=== PATIENT | female | born 1975 | race Caucasian/White ===

== ENCOUNTER → 2018-05-12 | Day surgery (SDC) | payer BC ==
[~2018-05-12] MED LIST: CYMBALTA20 MG PO; DIPHENHYDRAMINE25 M2 PO; FENTANYL CITRATE/PF 100MCG/2 ML INJ ONE; HALOPERIDOL1 MG PO; HUMIRA20 MG/0.4 SQ; HYDROXYZINE HCL25 MG PO; IMIPRAMINE HCL25 MG PO; LIALDA1.2 GM PO; MIDAZOLAM HCL 2 MG/2 ML VIAL ONE; NON-ASA ALLERG1 EACH PO; PANTOPRAZOLE SO40 MG PO; PREDNISONE20 MG PO; PROBIOTIC & AC1 EACH PO; PROPOFOL IV EMULSION 10 MG/ML 20 ML VIAL ONE; RANITIDINE HCL150 M1 PO; SINGULAIR10 MG PO; STELARA90 MG/1 ML SQ; SUCRALFATE1 GM PO; SULFASALAZINE500 MG PO; TOPIRAMATE100 MG PO; TRAZODONE HCL50 MG PO; UCERIS PO; VIBERZI PO; VITAMIN B-121000 MC2 SL; VITAMIN C500 M3 PO; VITAMIN D1000 UNI1 PO; WELLBUTRIN100 MG PO
--- OUTSIDE RECORDS SUMMARY | 2018-05-12 10:44 | XMS REPORT ---
Author Author [facility] Address Unknown Phone Unavailable Care Team Providers Care [employer] Name Role Phone Unavailable Unavailable Payers Payer Name Policy Type Policy Number Effective Date Expiration Date Problems This patient has no known problems. Allergies, Adverse Reactions, Alerts Allergy Name Allergy Type Status Severity Reaction(s) Onset Date Inactive Date Treating Clinician Comments No Known Intolerances DA Active U 2010-06-26 00:00:00 Medications This patient has no known medications.
[2018-05-12 13:30] VITALS: BP 134/94
--- NOTE | 2018-05-12 16:03 | Operative Report ---
DATE OF PROCEDURE: May 12, 2018 PROCEDURE PERFORMED: Colonoscopy. PREOPERATIVE DIAGNOSIS: Crohn disease. POSTOPERATIVE DIAGNOSES 1. Incomplete colonoscopy secondary to poor prep. 2. Crohn disease. PREOPERATIVE MEDICATIONS: Consisted of general anesthesia. DESCRIPTION OF PROCEDURE: Using the [employer] video colonoscope, it was inserted in the patient's rectum and advanced up into the sigmoid colon. There was an excessive amount of stool present in the rectum and sigmoid colon, which precluded examination of the colon lining. At this point, we decided to abort the colonoscopy and perform a better cleanout and repeat the colonoscopy at another time. In conclusion, we have findings of an incomplete colon examination and a history of Crohn disease. Job#: [id number]
== END | disposition home or self-care (01) ==
LOC: OR 10:42
PROVIDERS: ATTEND Internal Medicine Gastroenterology
DX: K50.10 Crohn's disease of large intestine without complications (principal); R11.0 Nausea; R10.11 Right upper quadrant pain; F32.9 Major depressive disorder, single episode, unspecified
CPT/HCPCS: 45330; 81025; J2250; J2704; 45378

== ENCOUNTER → 2018-06-23 | Day surgery (SDC) | payer BC ==
[~2018-06-23] MED LIST changes: +LIDOCAINE HCL 2% LOCAL INJ 5 ML SDV VIAL INJ ONE; -PROPOFOL IV EMULSION 10 MG/ML 20 ML VIAL ONE; +PROPOFOL IV EMULSION 10 MG/ML 50 ML VIAL ONE
[2018-06-23 10:15] VITALS: BP 127/81
--- NOTE | 2018-06-23 13:12 | Operative Report ---
DATE OF PROCEDURE: June 23, 2018 PROCEDURE PERFORMED: Colonoscopy. PREOPERATIVE DIAGNOSES 1. History of Crohn's disease. 2. History of colon polyps. POSTOPERATIVE DIAGNOSES 1. Normal colon exam. 2. Internal hemorrhoids were present. 3. History of colon polyps. 4. History of Crohn's disease. PREOPERATIVE MEDICATIONS: Consisted with TIVA anesthesia. Using the [employer] video colonoscope, it was inserted in the patient's rectum and advanced without difficulty to the level of the ascending colon down in the cecum. It was filled with stool. We were unable to clear it out to see the cecum, but we studied the colon from that level back down to the rectum. No polypoid lesions, tumor masses or inflammatory changes were encountered. No diverticula were seen. No evidence of active inflammatory bowel disease was seen. In the rectum, there was evidence of internal hemorrhoids. The colonoscope was withdrawn from the patient's rectum, and the procedure was ended. Job#: [id number] [place]
== END | disposition home or self-care (01) ==
LOC: OR 07:52
PROVIDERS: ATTEND Internal Medicine Gastroenterology
DX: K50.90 Crohn's disease, unspecified, without complications (principal); K59.00 Constipation, unspecified; K64.8 Other hemorrhoids; K21.9 Gastro-esophageal reflux disease without esophagitis; G47.33 Obstructive sleep apnea (adult) (pediatric); F32.9 Major depressive disorder, single episode, unspecified; F41.9 Anxiety disorder, unspecified; Z88.8 Allergy status to other drugs, medicaments and biological substances; Z68.32 Body mass index [BMI] 32.0-32.9, adult
CPT/HCPCS: 45378; 81025; J2001; J2250